=== PATIENT | male | born 1945 | race Caucasian/White ===

== ENCOUNTER 2016-09-01 09:49 | Inpatient (IN) | payer OTHER ==
[2016-08-04 15:07] LABS: % IMMATURE GRANULYOCYTES 0.2 % (0.0-1.1); ABSOLUTE IMMATURE GRANULOCYTES 0.01 10^3/uL (0.00-0.10); ADD DIFF? NO; ADD MORPH? NO; ADD SCAN? NO; ATYPICAL LYMPHOCYTE FLAG 0 (0-99); FRAGMENT RBC FLAG 0 (0-99); HEMATOCRIT 44.6 % (40.0-51.0); HEMOGLOBIN 15.7 g/dL (13.7-17.5); LEFT SHIFT FLG 0 (0-99); LIPEMIA HEMOLYSIS FLAG 90 (0-99); MEAN CELL HEMOGLOBIN 31.7 pg (27.9-34.1); MEAN CELL HEMOGLOBIN CONCENTR. 35.2 g/dL (32.4-36.7); MEAN CELL VOLUME 89.9 fL (81.5-99.8); MEAN PLATELET VOLUME 8.7 fL (8.7-11.7); PLATELET CLUMPS FLAG 0 (0-99); PLATELET COUNT 250 10^3/uL (150-400); RED BLOOD CELL COUNT 4.96 10^6/uL (4.40-6.38); RED CELL DISTRIBUTION WIDTH 13.6 % (11.5-15.2)
[2016-08-04 15:49] LABS: ANION GAP 13 mEq/L (8-16); CALCIUM 9.6 mg/dL (8.5-10.4); CARBON DIOXIDE 24 mEq/l (22-31); CHLORIDE 105 mEq/L (97-110); CREATININE 0.8 mg/dL (0.7-1.3); GLOMERULAR FILTRATION RATE > 60; GLUCOSE 97 mg/dL (70-100); POTASSIUM 4.3 mEq/L (3.5-5.2); SODIUM 142 mEq/L (134-144)
--- NOTE | 2016-08-31 09:30 | GHP ---
[f rep st] PREOP HISTORY AND PHYSICAL DATE OF ADMISSION: 09/01/2016 DATE OF SURGERY: September 01, 2016. PROBLEM: Left hip advanced degenerative arthritis. HISTORY OF PRESENT ILLNESS: The patient is a 71-year-old male who will be undergoing a left total hi p arthroplasty with Dr. Arevalo at the [facility] on September 01, 2016. The patient lorenzo s had progressive pain of the left hip since the fall of 2015. His pain was insidious in onset while walking. He gets daily pain in the groin, which is worse with activity. He has tried and failed th e use of ibuprofen, activity modification and self-directed physical therapy exercises. Because of h is advanced arthritis and recalcitrant response to conservative therapies, the patient has elected to proceed with a left total hip arthroplasty. PAST MEDICAL HISTORY: Pertinent for treated hypertension, asthma, and hypercholesterolemia. No hist ory of heart disease, stents, DVT, hepatitis or sleep apnea. CURRENT MEDICATIONS: Atorvastatin 40 mg, Flovent Diskus 100 mcg, fluticasone 50 mcg, lisinopril 20 m g, omeprazole 40 mg, zolpidem 5 mg. ALLERGIES: Morphine, which makes him agitated. SOCIAL HISTORY: The patient is . He is retired. He does not smoke cigarettes and has occasi onal alcohol use. FAMILY HISTORY: Pertinent for arthritis. PAST SURGICAL HISTORY: Right hip resurfacing arthroplasty and 3 level cervical spine fusion in 2013. PHYSICAL EXAMINATION: GENERAL: He is a healthy-appearing 71-year-old male. VITALS: Height 5 feet 8 inches tall, weight 182 pounds. BMI 27.7. HEENT: Head is normocephalic, atraumatic. Eyes are PE RRLA. Conjunctivae and sclerae are clear. Mouth: He has good oral hygiene without any loose teeth. CHEST: Clear without adventitious breath sounds. HEART: Regular rate and rhythm without murmurs, gallops, or rubs. EXTREMITIES: Pertinent findings are limited to the patient's left hip. He has f ull hip extension, 105 degrees of flexion, 20 degrees of external rotation, 0 degrees of internal rot ation, and 20 degrees of abduction. DIAGNOSTIC IMAGING: Recent x-rays taken of the patient's hip show moderate to severe cartilage space narrowing of the left hip with peripheral osteophyte formation and increased subchondral sclerosis. IMPRESSION ON ADMISSION: 1. Advanced left hip degenerative arthritis. 2. Treated hypercholesterolemia. 3. Treated hypertension. 4. Treated asthma. PLAN: The plan will be for the patient to undergo a left total hip arthroplasty with Dr. Arevalo at [facility] on Thursday, September 01, 2016. The surgery has been described to the pa krishna including the risks, benefits, and expectations. He understands the risk of leg length inequal ity, infection, sciatic nerve injury, or hip dislocation. All his questions have been answered. He consents to surgery here in the office. /[id number]/MODL
[~2016-09-01 09:49] MED LIST: ACETAMINOPHEN 325 MG TAB PO ONE; CEFAZOLIN 2 GM/DEXTR 100 ML IV ONE; CHLORHEXIDINE GLUC HIBICLENS 118 ML BTL TP ONE; DEXAMETHASONE 4 MG/ML VIAL IVP ONE; POVIDONE-IODINE 20 ML in SODIUM CL IRRIG SOLUTION 500 ML IRR ONE; ROPI/epiNEPH/KETOROLAC JOINT COCKTAIL IU ONE; TRANEXAMIC ACID 1,660 MG in NS 100 ML IV ONE
[2016-09-01] MEDS ORDERED: DEXAMETHASONE 4 MG/ML VIAL ONE (10:02)
[2016-09-01] MEDS ORDERED: ACETAMINOPHEN 325 MG TAB ONE (10:02)
[2016-09-01] MEDS ORDERED: FAMOTIDINE 20 MG TAB ONE (10:02)
[2016-09-01] MEDS ORDERED: CEFAZOLIN 2 GM/DEXTROSE/100 ML BAG IV ONE (10:02)
[2016-09-01] MEDS ORDERED: LIDOCAINE 1% 5 ML SDV ONE (10:03)
[2016-09-01] MEDS ORDERED: SKIN ADHESIVE (DERMABOND) 1 EACH TP ONE (10:13)
[2016-09-01] MEDS ORDERED: ceFAZolin 1 GM/5 ML SYR ONE (10:14)
[2016-09-01] MEDS ORDERED: fentaNYL 100 MCG/2 ML INJ ONE (10:57)
[2016-09-01] MEDS ORDERED: MIDAZOLAM 2 MG/2 ML VIAL ONE (11:36)
[2016-09-01] MEDS ORDERED: LIDOCAINE 2% 5 ML SDV ONE (11:50)
[2016-09-01] MEDS ORDERED: PROPOFOL/EMULSION 500 MG/50 ML BOTTLE IV ONE (11:51)
[2016-09-01] MEDS ORDERED: epHEDrine SULFATE 10 MG/ML SYR ONE ×5 (12:01→12:28)
[2016-09-01] MEDS ORDERED: METOCLOPRAMIDE 10 MG/2 ML VIAL ONE ×2 (12:08)
[2016-09-01] MEDS ORDERED: PHENYLEPHRINE HCL 100 MCG/ML SYR ONE (12:40)
--- NOTE | 2016-09-01 13:33 | POSTOPPROG ---
Post Op Note Date of Operation: 09/01/16 Surgeon: Jacob Arevalo Range Ecologist: Marquise Silva Anesthesiologist: Burak Anesthesia: IV Sedation, Spinal Post-op Diagnosis: left hip arthritis Procedure: left ZACH Inf/Abcess present in the surg proc area at time of surgery?: No EBL: 100-500
[2016-09-01] MEDS ORDERED: ZOLPIDEM TARTRATE 5 MG TAB PO PRN (13:44)
[2016-09-01] MEDS ORDERED: BISACODYL 10 MG SUPP PR PRN (13:45)
[2016-09-01] MEDS ORDERED: ONDANSETRON DISINTEGRATING 4 MG TAB PO PRN (13:45)
[2016-09-01] MEDS ORDERED: PHARMACY PAIN CONSULT 1 EA MISC PRN (13:45)
[2016-09-01] MEDS ORDERED: CYCLOBENZAPRINE 10 MG TAB PO PRN (13:45)
[2016-09-01] MEDS ORDERED: KETOROLAC 30 MG/1 ML SDV IVP PRN (13:45)
[2016-09-01] MEDS ORDERED: PROMETHAZINE HCL 25 MG SUPPR PR PRN (13:45)
[2016-09-01] MEDS ORDERED: METOCLOPRAMIDE 10 MG/2 ML VIAL IVP PRN (13:45)
[2016-09-01] MEDS ORDERED: ONDANSETRON 4 MG/2 ML VIAL IVP PRN (13:45)
[2016-09-01] MEDS ORDERED: POLYETHYLENE GLYCOL 3350 17 GM PKT PO PRN (13:45)
[2016-09-01] MEDS ORDERED: LACTULOSE 20 GM/30 ML UDCUP PO PRN (13:45)
[2016-09-01] MEDS ORDERED: NS 500 ML IV PRN (13:45)
[2016-09-01] MEDS ORDERED: DIPHENOXYLATE/ATROPINE LOMOTIL 1 TAB PO PRN (13:45)
[2016-09-01] MEDS ORDERED: MAGNESIUM HYDROXIDE 30 ML UDCUP PO PRN (13:45)
[2016-09-01] MEDS ORDERED: diphenhydrAMINE 25 MG CAP PO PRN (13:45)
[2016-09-01] MEDS ORDERED: PROMETHAZINE HCL 25 MG/ML INJ IVP PRN (13:45)
[2016-09-01] MEDS ORDERED: TEMAZEPAM 15 MG CAP PO PRN (13:45)
[2016-09-01] MEDS ORDERED: LR 1,000 ML IV SCH (14:00)
--- NOTE | 2016-09-01 14:27 | GOP ---
[f rep st] OPERATIVE REPORT DATE OF OPERATION: 09/01/2016 SURGEON: Jacob Arevalo MD CATHODE RAY TUBE SALVAGE PROCESSOR: Torin Camarillo ANESTHESIA: Combination of Marcaine, spinal, and IV sedation. ANESTHESIOLOGIST: Dr. Ja Sumner PREOPERATIVE DIAGNOSIS: Left hip severe degenerative arthritis. POSTOPERATIVE DIAGNOSIS: Left hip severe degenerative arthritis. PROCEDURE PERFORMED: 09/01/2016 a left total hip arthroplasty, Oxinium femoral head on highly crossl inked polyethylene liner. FINDINGS: DESCRIPTION OF PROCEDURE: The patient was given 2 g of preoperative IV Ancef within 60 minutes of duran rgery. He also received IV tranexamic acid at a dose of 20 mg/kg. He was placed on the operating ro om table and given spinal anesthesia with Marcaine by Dr. Sumner. He was then placed supine and given IV sedation. A Ramirez catheter was not used. He wore a NAOMI stocking and SCD on the nonoperati ve leg. He was rolled to the right lateral decubitus position. The position was secured with the pe gboard table attachment. His head was elevated to help deal with his acid reflux. An axillary roll was used and all pressure points were carefully padded. I was careful to lock his pelvis in a rigid vertical position. His perineum was isolated with plastic adhesive drapes. The left hip and left lo wer extremity were prepped with ChloraPrep. They were draped free using sterile sheets, stockinette, and Ioban plastic drape. The World Health Organization timeout was performed to verify the correct surgical side and the corre ct patient identity. The [place] timeout was also performed. I made a 5-inch straight oblique posterolateral hip skin incision. Subcutaneous tissues were sharply divided and hemostasis was obtained using electrocautery. The fascia deepa was identified and split along the axis of its fibers. I then curved posteriorly and proximally and split the fascia of the g luteus paulo and bluntly split the muscle fibers in line with their orientation. The Charnley self -retaining retractor was inserted. His sciatic nerve was located, partially exposed and protected th roughout the procedure. The external rotators and the posterior hip capsule were divided as separate layers at the base of the femoral neck, tagged and reflected posteriorly. A smooth 1/8-inch Steinma nn pin was inserted vertically into the ilium superior to the acetabulum. A 1/8-inch drill bit was i nserted vertically into the greater trochanter and parallel to the first pin. The distance between t he 2 was measured for leg length reference. His femoral head was dislocated posteriorly. Severe deg enerative changes were present on the femoral head. The femoral neck was osteotomized at the appropr iate level and inclination. I was careful to preserve all the posterior capsule and most of the anterior capsule. The remnant of his damaged labrum was excised. I prepared the femur first. This allowed me to [employer] home [employer] the amount of natural femoral neck anteversion. This, in turn, allowed me to later determine the correct amount of cup anteversion. He had approxi mately 10 degrees of natural femoral neck anteversion. The canal was opened laterally with a box chi bernardino. I reamed and broached sequentially up to a size 10. He had a very tight proximal femoral canal . I used a size 10 broach as a trial stem. I was careful to lateralize adequately. Appropriate retractors were inserted to expose the acetabulum. The acetabulum was reamed sequentiall y up to 53 mm. I selected a 54 mm Rahman and Nephew R3 solid backed hemispherical shell. This was ta pped securely into place in the proper degree of inclination and anteversion. I used the remnant of his transverse acetabular ligament and other acetabular bony landmarks to help me properly orient the cup. The fixation was tight and I did not think supplemental screw fixation was necessary. I inser naomi the screw-in metal dome hole plug. I performed a series of trial reductions to determine length and stability. I concluded that the siz e 10 stem with a +4 mm neck length, a 36 mm head and a 20-degree lip trial liner gave me the proper c ombination of appropriate length and good anterior and posterior stability. The 20-degree lip Rahman [employer] Nephew R3 highly crosslinked polyethylene liner was inserted and tapped s ecurely into place. I selected the Rahman and Nephew Synergy stem and a size 10 with standard offset. This was inserted press-fit. As I was doing the final couple of millimeters of seating the compone nt, I created a nondisplaced fracture along the medial neck. I removed the femoral component. I gray lied a 2.0 mm TourPal-GroSocial cable. This was tightened securely. The size 10 prosthesis was then reinse rted to the proper depth. I did a small amount of additional tightening of the cable. The cable cla mp was crimped and excess cable was cut off. The fracture was nondisplaced and was stable. I did 1 final trial reduction and confirmed that the +4 mm neck length with a 36 mm head was the proper combi nation. I applied the Rahman and Nephew Oxinium head with an outside diameter of 36 mm and a neck ronny gth of +4 mm. The acetabulum was irrigated and cleaned, and the hip was reduced 1 final time. He lorenzo d excellent anterior and posterior stability and appropriate length. 40 mL of the joint anesthetic cocktail were injected into the capsule, the deep musculature and the s ubcutaneous tissues around the skin edges. The joint was thoroughly irrigated 1 final time with a di lute Betadine solution. His sciatic nerve was reinspected and looked unharmed. The external rotator s and the posterior hip capsule were repaired in separate layers with #[address] ill holes in the greater trochanter. This provided a very strong posterior capsular and external rot ator repair. The fascia deepa was closed with several lbinhb-[id number] #2 FiberWire sutures, followed by a running #2 barbed Ethicon StrataFix PDO suture. Subcutaneous tissues were closed with a running 0 barbed Ethicon StrataFix Monoderm suture. The skin was closed with a running 3-0 barbed Ethicon S trataFix Monoderm subcuticular suture. The skin edges reapproximated and sealed with Dermabond glue. The wound was covered with a strip of Telfa, and everything was held in place with a piece of clear plastic Tegaderm. A long-leg NAOMI stocking and SCD were applied to his left lower extremity. He wore a stocking and SCD on the opposite leg during the procedure. An abduction pillow was placed between his knees. He was awakened from anesthesia and rolled to the supine position on his [facility]. He was taken to PACU in satisfactory condition. The sponge and needle count were correct on 2 occasions. I used a Rahman and Nephew R3 solid backed hemispherical shell with an outside diameter of 54 mm. The liner was a Rahman and Nephew R3, 20-degree lipped highly crosslinked liner with an inside diameter 3 6 mm. The femoral component was a standard offset Rahman and Nephew Synergy stem and a size 11 and pr ess-fit. The femoral head was a Rahman and Nephew Oxinium head with a +4 mm neck length and a 36 mm o utside diameter. I also used one 2 mm Dall-Miles cable around the proximal femur. Torin Silva and Portillo Camarillo acted as surgical assistants. Their assistance was a medical necess ity. /[id number]/MODL
--- NOTE | 2016-09-01 14:43 | DX ---
AP Pelvis History: Left hip total replacement surgery. Findings: A new bipolar left hip replacement is present and appears to be in excellent anatomic align ment. A cerclage wire surrounds the proximal femoral shaft component. There is a stable right hip [facility] covering prosthesis.. Impression: Excellent alignment of the new left total hip replacement.
[2016-09-01] MEDS: TRANEXAMIC ACID 650 MG TAB PO SCH ×2 (15:55→21:01)
[2016-09-01] MEDS: oxyCODONE IR 5 MG TAB PO PRN ×2 (18:46→23:11)
[2016-09-01] MEDS: ACETAMINOPHEN 325 MG TAB PO SCH ×2 (18:46→23:13)
[2016-09-01 18:48] VITALS: RESP 16
[2016-09-01] MEDS ORDERED: ceFAZolin 2 GM/DEXTROSE 100 ML IV SCH (20:00)
[2016-09-01] MEDS: ceFAZolin 2 GM in D5W 100 ML IV SCH (20:59)
[2016-09-01] MEDS: ASPIRIN 325 MG TAB PO SCH (21:00)
[2016-09-01] MEDS: traMADol 50 MG TAB PO PRN (21:00)
[2016-09-01] MEDS: SENNOSIDES/DOCUSATE SODIUM TAB PO SCH (21:01)
[2016-09-01] MEDS: FAMOTIDINE 20 MG TAB PO SCH (21:01)
[2016-09-01] MEDS: FLUTICASONE NASAL 120 SPRAYS/16 GM MDI EACHNARE SCH (21:06)
[2016-09-01] MEDS: FLUTICASONE PROPIONATE IH SCH (21:07)
[2016-09-02] MEDS: oxyCODONE IR 5 MG TAB PO PRN ×3 (02:35→09:07)
[2016-09-02] MEDS: traMADol 50 MG TAB PO PRN ×2 (03:30→09:08)
[2016-09-02] MEDS: ceFAZolin 2 GM in D5W 100 ML IV SCH (03:30)
[2016-09-02 05:19] LABS: HEMATOCRIT 36.5 % (40.0-51.0); HEMOGLOBIN 12.6 g/dL (13.7-17.5)
[2016-09-02] MEDS: ACETAMINOPHEN 325 MG TAB PO SCH (06:17)
[2016-09-02 07:57] VITALS: BP 118/76; PULSE 69; TEMP 98.5; O2SAT 93
--- NOTE | 2016-09-02 08:29 | SOAPPROG ---
SOAP Progress Note Assessment/Plan: Assessment: POD #1. s/p L ZACH Awake, alert, afebrile. Normal sciatic nerve function. Post op films look good H/H ok. VSS. Dressing clean and dry. Mild pain. Plan: PT/OT today. Partial WB 50% x 3 weeks. Discharge to home later today. 09/02/16 08:28 Objective: Vital Signs Temp Pulse Resp BP Pulse Ox 36.9 C 69 16 118/76 93 09/02/16 07:57 09/02/16 07:57 09/02/16 07:57 09/02/16 07:57 09/02/16 07:57 Laboratory Results 09/02/16 04:48 08/04/16 14:50 09/01/16 09/02/16 09/03/16 05:59 05:59 05:59 Intake Total 4356 Output Total 900 Balance 3456 ICD10 Worksheet Patient Problems: Problems Problem Status Diagnosed Osteoarthritis of left hip Acute
--- NOTE | 2016-09-02 08:33 | PDIAF ---
- Diagnosis Diagnosis: L hip arthritis Code Status: Full Code - Medication Management Discharge Medications: Medications to Continue on Transfer Fluticasone Nasal [Flonase Nasal Irrigon] 2 sprays EACHNARE BID 03/22/13 [Last Taken 09/01/16 08:00] Omeprazole [Prilosec 40 mg] 40 mg PO DAILY 03/22/13 [Last Taken 08/31/16] Atorvastatin Calcium [Lipitor 40 mg (*)] 40 mg PO DAILY 07/29/16 [Last Taken Unknown] Cetirizine [ZyrTEC 10 mg (*)] 10 mg PO DAILY 07/29/16 [Last Taken 08/25/16] Fluticasone Propionate [Flovent Diskus] 1 puffs IH BID 07/29/16 [Last Taken 02/08] Herbals/Supplements -Info Only 1 ea PO DAILY 07/29/16 [Last Taken 08/18/16] Lisinopril [Zestril 20 mg (*)] 20 mg PO DAILY 07/29/16 [Last Taken 08/31/16] Multivitamins [Multivitamin (*)] 1 each PO DAILY 07/29/16 [Last Taken 08/18/16] [place]-3 Fatty Acids [Fish Oil 1000 mg (*)] 3,000 mg PO DAILY 07/29/16 [Last Taken 08/18/16] Zolpidem Tartrate [Ambien 5MG (*)] 5 mg PO HS PRN 07/29/16 [Last Taken 08/25/16] Acetaminophen [Tylenol 325mg (*)] 650 mg PO Q6HRS #0 tab 09/02/16 [Last Taken Unknown] Aspirin [Aspirin 325 mg (*)] 325 mg PO DAILY #21 tab 09/02/16 [Last Taken Unknown] Ferrous Sulfate [Slow Fe 140 MG (*)] 140 mg PO DAILY #30 tab.er 09/02/16 [Last Taken Unknown] Ondansetron Odt [Zofran Odt 4 mg (*)] 4 mg PO Q4HRS PRN #0 tab 09/02/16 [Last Taken Unknown] oxyCODONE IR [Oxycodone Ir (*)] 5 - 10 mg PO Q3HRS PRN #0 tab 09/02/16 [Last Taken Unknown] traMADol [Ultram 50 mg (*)] 50 mg PO Q6HRS PRN #0 tab 09/02/16 [Last Taken Unknown] Discharge Medications: Refer to the Discharge Home Medication list for PRN reason. PICC Care - Routine: N/A - Orders Services needed: Home Care, Physical Therapy Home Care Face to Face: I certify that this patient was under my care and that I had the required [id number] encounter meeting the encounter requirements on the discharge day. My findings support the fact that the patient is homebound as defined in CMS Chapter 7 Medicare Benefits Manual 30.1.1, The condition of the patient is such that there exists a normal inability to leave home and consequently, leaving home would require a considerable and taxing effort. Diet Recommendation: no restrictions on diet Diet Texture: Regular Texture Diet Ramirez: Not applicable Aakash Stockings Discontinue Date: 1 week Wound Care Instructions: keep clean and dry. You may shower. Activity/Weight Bearing Restrictions: 50% wt bearing x 3 weeks. - Follow Up Care Current Providers and Referrals: Adri Chaudhary MD [Primary Care Provider] - Jacob Arevalo MD [Medical Doctor] - 09/24/16 9:30 am
[2016-09-02] MEDS: FLUTICASONE PROPIONATE IH SCH (08:53)
[2016-09-02] MEDS: FLUTICASONE NASAL 120 SPRAYS/16 GM MDI EACHNARE SCH (08:54)
[2016-09-02] MEDS ORDERED: CETIRIZINE 10 MG TAB PO SCH (09:00)
[2016-09-02] MEDS ORDERED: MULTIVITAMINS 1 EACH TAB PO SCH (09:00)
[2016-09-02] MEDS ORDERED: OMEGA-3 FATTY ACIDS 1,000 MG CAP PO SCH (09:00)
[2016-09-02] MEDS ORDERED: PANTOPRAZOLE SODIUM 40 MG TAB PO SCH (09:00)
[2016-09-02] MEDS ORDERED: ATORVASTATIN CALCIUM 40 MG TAB PO SCH (09:00)
[2016-09-02] MEDS ORDERED: FERROUS SULFATE 140 MG TAB.ER PO SCH (09:00)
[2016-09-02] MEDS ORDERED: Herbals/Supplements -Info Only PO SCH (09:00)
[2016-09-02] MEDS ORDERED: LISINOPRIL 20 MG TAB PO SCH (09:00)
[2016-09-02] MEDS: TRANEXAMIC ACID 650 MG TAB PO SCH (09:07)
[2016-09-02] MEDS: ASPIRIN 325 MG TAB PO SCH (09:08)
[2016-09-02] MEDS: FAMOTIDINE 20 MG TAB PO SCH (09:08)
[2016-09-02] MEDS: SENNOSIDES/DOCUSATE SODIUM TAB PO SCH (09:12)
--- NOTE | 2016-09-02 12:09 | GDS ---
[f rep st] DISCHARGE SUMMARY ADMISSION DIAGNOSIS: Severe left hip degenerative arthritis. DISCHARGE DIAGNOSIS: Severe left hip degenerative arthritis. OPERATION PERFORMED: Left total hip arthroplasty with Oxinium femoral head on highly cross-linked po lyethylene liner and cable fixation for intraoperative fracture. POSTOPERATIVE COMPLICATIONS: None. CONDITION ON DISCHARGE: Improved. DESCRIPTION OF HOSPITAL COURSE: The patient was admitted to the hospital on the day of surgery. His admission white blood cell count was 5.99. His hemoglobin and hematocrit were 15.7 and 44.6. On same day, he underwent a left total hip arthroplasty with Marcaine spinal anesthesia and IV sedatio n. He was treated with multimodal DVT prophylaxis, including NAOMI stockings, full-strength aspirin, a nd SCDs. On the 1st postoperative day, the patient's hemoglobin and hematocrit were 12.6 and 36.5. He did not require any transfused blood. He was seen by Physical Therapy and made good progress with hip range of motion exercises and ambulation. By the time of discharge, the patient was independent with his exercises and use of his walker. He w as also afebrile. DISPOSITION: The patient is discharged to his home. He will have home physical therapy. Abduction pillow in bed x3 weeks. NAOMI stockings x1 week. Full-strength aspirin for 21 days. He has prescript ions at home for oxycodone and tramadol for pain control. He will be seen back in the office on 2016. If he has any problems before then, he will call the office. /[id number]/MODL
== END 2016-09-02 11:19 | disposition home health service (06) | DRG 470 ==
LOC: F3N 09:49
PROVIDERS: ADMIT Orthopaedic Surgery; ATTEND Orthopaedic Surgery
PROC: 0SRB04Z Replacement of Left Hip Joint with Ceramic on Polyethylene Synthetic Substitute, Open Approach (ICD-10-PCS; principal; 2016-09-01 11:15)
DX: M16.12 Unilateral primary osteoarthritis, left hip (principal); I10 Essential (primary) hypertension; J45.909 Unspecified asthma, uncomplicated; E78.00 Pure hypercholesterolemia, unspecified; K21.9 Gastro-esophageal reflux disease without esophagitis; Z96.641 Presence of right artificial hip joint
CPT/HCPCS: 97161-GP; 97165-GO; C1713; G8978-GP-CI; G8979-GP-CI; G8980-GP-CI; G8987-GO-CI; G8988-GO-CI; G8989-GO-CI; J0171; J0690; J1100; J1885; J2250; J2370; J2704; J2765; J2795; J3010

== ENCOUNTER → 2016-11-18 | Outpatient (CLI) | payer OTHER | LOC: BMCIMAGING 10:04 | PROVIDERS: ATTEND Emergency Medicine | DX: R05 Cough (principal) ==